=== PATIENT | male | born 1975 | race Caucasian/White ===

== ENCOUNTER 2017-06-04 14:22 | Observation (INO) | payer BC ==
[~2017-06-04] VITALS: Ht 177.8 cm; Wt 54.0 kg
[2017-06-04] MEDS ORDERED: SOD CHLORIDE 0.9% 1,000 ML IV STA (14:37)
--- NOTE | 2017-06-04 15:23 | RADRPT ---
PROCEDURE: CT brain without contrast CLINICAL INDICATION: Seizure TECHNIQUE: CT of the brain without contrast performed on a multidetector CT scanner. One or more o f the following dose reduction techniques were used: Automated exposure control, adjustment in mA an d / or kV according to patient size, use of iterative reconstructive technique. CTDIvol = 45 mGy; D LP = 720 mGy-cm. COMPARISON: None available FINDINGS: No acute intracranial hemorrhage is identified. No extra-axial fluid collection is seen. There is no mass effect. No midline shift is identified. The ventricles and sulci are mildly enlarged compatible with generalized volume loss. There are mild areas of hypodensity in the periventricular - deep white matter which are nonspecific but suggestive of chronic small vessel ischemic changes. Farfan-white differentiation is preserved. There is left parietal scalp swelling. The calvarium and skull base appear intact. Mastoid air cell s and imaged paranasal sinuses grossly clear. IMPRESSION: 1. No evidence of acute intracranial pathology. 2. Mild generalized volume loss, with mild chronic small vessel ischemic changes. 3. Left parietal scalp swelling. RPTAT: VV .Jose Angel Marrufo MD, MD Date Time Electronically viewed and signed by .Jose Angel Marrufo MD, on 06/04/2017 15:22 .O/
[2017-06-04 15:24] LABS: ABNORMAL IP MESSAGE 1; BASOPHIL # 0.1 10^3/ul (0.0-0.1); BASOPHILS % 0.7 % (0.0-2.0); EOSINOPHILS # 0.2 10^3/ul (0.0-0.5); HEMATOCRIT 40.5 % (42.0-52.0); HEMOGLOBIN 14.1 g/dl (14.0-18.0); LYMPHOCYTES # 1.6 10^3/ul (0.8-2.9); LYMPHOCYTES % 20.7 % (15.0-51.0); MEAN CORPUSCULAR HEMOGLOBIN 36.8 pg (29.0-33.0); MEAN CORPUSCULAR HGB CONC 34.8 g/dl (32.0-37.0); MEAN CORPUSCULAR VOLUME 105.7 fl (82.0-101.0); MEAN PLATELET VOLUME 11.8 fl (7.4-10.4); MONOCYTE # 0.9 10^3/ul (0.3-0.9); MONOCYTES % 11.8 % (0.0-11.0); NEUTROPHIL # 4.9 10^3/ul (1.6-7.5); NEUTROPHILS % 63.8 % (39.0-77.0); POSITIVE DIFF @See below; RED BLOOD COUNT 3.83 10^6/ul (4.70-6.10); RED CELL DISTRIBUTION WIDTH 13.2 % (11.5-14.5); WHITE BLOOD COUNT 7.6 10^3/ul (4.8-10.8)
--- NOTE | 2017-06-04 15:30 | RADRPT ---
PROCEDURE: XR Chest. CLINICAL INDICATION: Seizure TECHNIQUE: Single frontal view of the chest was obtained COMPARISON: None FINDINGS: No pleural effusion or pneumothorax. No consolidation. Normal cardiomediastinal silhouette. No acute osseous abnormality. IMPRESSION: No acute cardiopulmonary disease. RPTAT: EE Keri Bernstein Physician Date Time Electronically viewed and signed by Keri Bernstein Physician on 06/04/2017 15:30 /
[2017-06-04 15:46] LABS: ALANINE AMINOTRANSFERASE 145 IU/L (13-69); ALBUMIN 4.4 g/dl (3.3-4.9); ALBUMIN/GLOBULIN RATIO 1.41; ALKALINE PHOSPHATASE 173 IU/L (42-121); ANION GAP 24 (8-16); BILIRUBIN,INDIRECT 1.2 mg/dl (0-1.1); BILIRUBIN,TOTAL 1.2 mg/dl (0.2-1.3); BLOOD UREA NITROGEN 5 mg/dl (7-20); CALCIUM 9.4 mg/dl (8.4-10.2); CARBON DIOXIDE 19 mmol/L (21-31); CHLORIDE 91 mmol/L (97-110); CREATININE 0.73 mg/dl (0.61-1.24); GLUCOSE 191 mg/dl (70-220); PLATELET COUNT 38 10^3/UL (140-415); SODIUM 131 mmol/L (135-144); TOTAL PROTEIN 7.5 g/dl (6.1-8.1)
[2017-06-04 15:51] LABS: ETHANOL < 10.0 mg/dl
[2017-06-04 15:55] LABS: ASPARTATE AMINO TRANSFERASE 369 IU/L (15-46); TROPONIN-I < 0.012 ng/ml (0.00-0.12)
[2017-06-04] MEDS ORDERED: POTASSIUM CHLORIDE 250 ML IVPB ONE (16:30)
--- NOTE | 2017-06-04 17:04 | ERA ---
ER Documentation Chief Complaint Date/Time DATE: 06/04/17 TIME: 17:04 Chief Complaint POSSIBLE SEIZURE, NO HX SEIZURE. REDNESS/BRUISING NOTED ON LT ELBOW. HPI 41-year-old male previously healthy brought in by ambulance after a witnessed seizure. Patient was shopping at a grocery store across the street when he sat on the floor and started having seizure-like activity per bystanders. The patient does not remember anything. Reportedly he was post ictal but currently he is back to his normal self. Patient denies any symptoms other than just generalized weakness at this time. He denies any headache, vision disturbance, fevers, chills, chest pain, abdominal pain, difficulty breathing, focal weakness or numbness. He denies any recent alcohol or drug use. He has never had a seizure before. ROS All systems reviewed and are negative except as per history of present illness. Medications Home Meds No Active Prescriptions or Reported Meds Allergies Allergies: Coded Allergies: No Known Allergy (Unverified , 06/04/17) PMhx/Soc Medical and Surgical Hx: pt denies Medical Hx, pt denies Surgical Hx Hx Alcohol Use: Yes (Multiple days a week, 3-4 drinks) Hx Substance Use: Yes Hx Tobacco Use: Yes Smoking Status: Current every day smoker FmHx Family History: No coronary disease, No diabetes Physical Exam Vitals Vital Signs Date Time Temp Pulse Resp B/P Pulse Ox O2 Delivery O2 Flow Rate FiO2 06/04/17 14:37 98.3 111 18 113/87 99 Physical Exam Const: Appears malnourished, no apparent distress, nontoxic Head: Minimal left parietal scalp swelling. Skull depressions. Eyes: Normal Conjunctiva PERRLA, EOMI ENT: Dry mucous membranes, contusion to the left aspect of the tongue Neck: Full range of motion..~ No meningismus. No C-spine tenderness. Resp: Clear to auscultation bilaterally Cardio: Tachycardic with regular rhythm, no murmurs Abd: Soft, non tender, non distended. Normal bowel sounds Skin: No petechiae or rashes Back: No midline or flank tenderness Ext: No cyanosis, or edema Neur: Awake and alert and oriented 3, strength and sensations intact, cranial nerves intact, normal gait Psych: Normal Mood and Affect Result Diagram: 06/04/17 1450 06/04/17 1450 Results 24 hrs Laboratory Tests Test 06/04/17 14:50 06/04/17 16:20 06/04/17 16:45 White Blood Count 7.610^3/ul Red Blood Count 3.8310^6/ul Hemoglobin 14.1g/dl Hematocrit 40.5% Mean Corpuscular Volume 105.7fl Mean Corpuscular Hemoglobin 36.8pg Mean Corpuscular Hemoglobin Concent 34.8g/dl Red Cell Distribution Width 13.2% Platelet Count 3810^3/UL Mean Platelet Volume 11.8fl Neutrophils % 63.8% Lymphocytes % 20.7% Monocytes % 11.8% Eosinophils % 2.0% Basophils % 0.7% Nucleated Red Blood Cells % 0.0/100WBC Neutrophils # 4.910^3/ul Lymphocytes # 1.610^3/ul Monocytes # 0.910^3/ul Eosinophils # 0.210^3/ul Basophils # 0.110^3/ul Nucleated Red Blood Cells # 0.010^3/ul Pathologist Review (Hematology) Path Consult Signing Pathologist POLLY LÓPEZ MD Sodium Level 131mmol/L Potassium Level 3.0mmol/L Chloride Level 91mmol/L Carbon Dioxide Level 19mmol/L Anion Gap 24 Blood Urea Nitrogen 5mg/dl Creatinine 0.73mg/dl Glucose Level 191mg/dl Calcium Level 9.4mg/dl Total Bilirubin 1.2mg/dl Direct Bilirubin 0.00mg/dl Indirect Bilirubin 1.2mg/dl Aspartate Amino Transf (AST/SGOT) 369IU/L Alanine Aminotransferase (ALT/SGPT) 145IU/L Alkaline Phosphatase 173IU/L Troponin I < 0.012ng/ml Total Protein 7.5g/dl Albumin 4.4g/dl Globulin 3.10g/dl Albumin/Globulin Ratio 1.41 Ethyl Alcohol Level < 10.0mg/dl Urine Color YELLOW Urine Clarity SLIGHTLY CLOUDY Urine pH 8.0 Urine Specific [place] 1.006 Urine Ketones NEGATIVEmg/dL Urine Nitrite NEGATIVEmg/dL Urine Bilirubin NEGATIVEmg/dL Urine Urobilinogen NEGATIVEmg/dL Urine Leukocyte Esterase NEGATIVELeu/ul Urine Microscopic RBC 2/HPF Urine Microscopic WBC 4/HPF Urine Mucus FEW/HPF Urine Hemoglobin NEGATIVEmg/dL Urine Glucose NEGATIVEmg/dL Urine Total Protein 1+mg/dl Urine Opiates Screen Negative Urine Barbiturates Negative Urine Amphetamines Screen Negative Urine Benzodiazepines Screen Negative Urine Cocaine Screen Negative Urine Cannabinoids Negative Current Medications Medications (Trade) Dose Ordered Sig/Luis Alfredo Route PRN Reason Start Time Stop Time Status Last Admin Dose Admin Sodium Chloride 1,000 ml @ 1,000 mls/hr Q1H STAT IV 06/04/17 14:37 06/04/17 15:36 DC 06/04/17 14:46 Potassium Chloride (KCl 40 MEQ/250 ML NS) 250 ml @ 62.5 mls/hr ONCE ONCE IVPB 06/04/17 16:30 06/04/17 20:29 Ondansetron HCl (Zofran Inj) 4 mg ER BRIDGE PRN IV NAUSEA AND/OR VOMITING 06/04/17 17:30 06/05/17 17:29 Acetaminophen (Tylenol Tab) 650 mg ER BRIDGE PRN PO MILD PAIN/FEVER 06/04/17 17:30 06/05/17 17:29 Procedures/MDM EKG: Rate/Rhythm: Tachycardia at 106 bpm QRS, ST, T-waves: Nonspecific T-wave abnormality with minimal ST depression in V3 and V4 Impression: No evidence of ischemia or arrhythmia Imaging: Chest x-ray shows no significant abnormalities CT head shows scalp swelling, no other acute abnormalities Labs CBC: Number cytopenia CMP: Hyponatremia, hypokalemia, acidosis, hyperglycemia, lipid liver enzymes, elevated bilirubin Urine drug screen negative Troponin within normal limits UA: no evidence of infection, no ketones Medical decision making The patient is presenting with new onset seizure. He is neurologically intact. His vitals are notable for tachycardia and his exam was significant for signs of dehydration and malnourishment. CT head did not show any acute abnormalities other than some volume loss. Labs were significantly abnormal including thrombocytopenia and elevated liver enzymes, concerning for possible liver failure. He also had electrolyte abnormalities including hypokalemia and hyponatremia. IV fluids were started. Potassium supplementation was also started. I discussed with the patient my findings and he agrees that he has not been eating much lately and has been drinking alcohol, but not for the past few days. My suspicion for starvation acidosis is high, especially given his elevated anion gap. I have a lower suspicion for sepsis or alcohol withdrawal seizure, however this remains a possibility. The patient will require admission for further workup and management of his acute conditions. I will defer any further testing to the inpatient team Critical Care Time: 35 minutes Treatments/Evaluations: Close monitoring and treatment of unstable vital signs, cardiorespiratory, and neurologic status, while maintaining tight balance of fluid, respiratory, and cardiac interventions. This time includes discussing the case with the patient and the patients family. This time does not include all procedures stated elsewhere in this record. This time also includes reviewing old records, labs and radiological studies. This time includes examining and re-examining the patient. Additionally, this time also includes arranging care with admitting and consulting physicians. Accepting Care Team: Current data and ongoing care discussed. Time: Time of admission Primary Provider: Alyssa Consulting: none Outstanding Data: Acetone Departure Diagnosis: Primary Impression: New onset seizure Additional Impressions: Hypokalemia Hyponatremia Thrombocytopenia Elevated liver enzymes Increased anion gap metabolic acidosis Malnutrition Qualified Code: E46 - Malnutrition, unspecified type Condition: Serious TOMY NAYLOR MD Jun 04, 2017 17:04
[2017-06-04 17:15] LABS: ADD UMIC YES; UR ASCORBIC ACID 20 mg/dL (NEGATIVE); UR BILIRUBIN (Dip) NEGATIVE (NEGATIVE); UR BLOOD (Dip) NEGATIVE (NEGATIVE); UR CLARITY SLIGHTLY CLOUDY (CLEAR); UR COLOR YELLOW (YELLOW); UR GLUCOSE (Dip) NEGATIVE (NEGATIVE); UR KETONES (Dip) NEGATIVE (NEGATIVE); UR LEUKOCYTE ESTERASE (Dip) NEGATIVE Leu/ul (NEGATIVE); UR MUCUS FEW /HPF (NONE SEEN); UR NITRITE (Dip) NEGATIVE (NEGATIVE); UR RBC 2 /HPF (0-5); UR SPECIFIC GRAVITY (Dip) 1.006 (1.003-1.030); UR TOTAL PROTEIN (Dip) 1+ mg/dl (NEGATIVE); UR UROBILINOGEN (Dip) NEGATIVE (NEGATIVE)
[2017-06-04] MEDS ORDERED: ONDANSETRON 4 MG INJ IV PRN ×2 (17:30→18:00)
[2017-06-04] MEDS ORDERED: ACETAMINOPHEN 325 MG TAB PO PRN ×2 (17:30→18:00)
[2017-06-04 17:41] LABS: BARBITURATES Negative (NEGATIVE); BENZODIAZEPINES Negative (NEGATIVE); CANNABINOIDS Negative (NEGATIVE); COCAINE Negative (NEGATIVE); OPIATES Negative (NEGATIVE)
[2017-06-04] MEDS ORDERED: LORAZEPAM 2 MG INJ IV PRN (18:00)
[2017-06-04] MEDS: SOD CHLORIDE 0.9% 1,000 ML IV SCH (18:00)
[2017-06-04] MEDS ORDERED: DOCUSATE SODIUM 100 MG CAP PO PRN (18:00)
[2017-06-04] MEDS ORDERED: NACL 0.9% 3 ML SYG IV SCH (18:00)
[2017-06-04] MEDS ORDERED: POTASSIUM CHLORIDE (SR) 20 MEQ TAB PO STA (18:14)
--- NOTE | 2017-06-04 18:16 | HP ---
Date/Time of Note Date/Time of Note DATE: 06/04/17 TIME: 18:15 Assessment/Plan VTE Prophylaxis VTE Prophylaxis Intervention: LMWH Assessment/Plan Assessment/Plan 1. New onset seizure - questionable if secondary to alcohol withdrawal - Will order EEG - Seizure precautions - Neurology consult - Ativan PRN - CT head negative for any acute abnormalities 2. Alcohol abuse - Patient states he drinks about 3-6 shots almost daily - Last drink was yesterday, 3 shots. ETOH level <10 - Denies going through withdrawal symptoms in the past - will start on banana bag with IVF - Librium 25mg TID and will wean - Counseled about ETOH cessation 3. Elevated LFTs - most likely alcoholic hepatitis give AST>ALT - Will order US RUQ to assess. finding of hepatomegaly - will monitor LFTs 4. Abdominal pain most likely secondary to alcoholic hepatitis - continue monitoring - Zofran for nausea 5. Tobacco abuse - smokes 1ppd - counseled about cessation - Not interested in patch at this time 6. Hypokalemia - replaced - will monitor 7. Hyponatremia - Most likely seizure related as well as dehydration - Will monitor and order urine studies 8. Diet - Regular 9. Code status - Full code 10. DVT - LMWH 11. GI - Pepcid 11. Disposition - Patient admitted to telemetry for further workup >40 minutes was spent at time of admission with patient. All labs and imaging reviewed personally and all patients questions answered. HPI/ROS Admit Date/Time Admit Date/Time Hx of Present Illness 41 yo M with PMH alcohol and tobacco abuse presented to ED after experiencing a witness seizure. Per patient he remembers walking to the convenience store and then blacked out. He awoke to EMS and was told he was seen to have seizure like activity by two gentleman outside the store. He denies biting his tongue/ lip or any loss of bladder or bowel. Patient states he has never experienced seizures before. Over the past year he admits to weight loss of 15lbs and loss of appetite for the past 2 months. He also has been experiencing right upper quadrant discomfort that is pressure like, nonradiating, not associated with food, as well as nausea and diarrhea. He does admit to a cough as well and numbness of his toes occasionally. Patient states he has been drink 3-6 shots almost daily for the past 20 years. Last drink was yesterday and he had 3 shots but denies any alcohol intake today. States he usually drinks for a couple days then abstains for 2-3 days. States he does experience tremors when he abstains but usually goes away in 1-2 days without any other withdrawal symp ROS Constitutional: fatigue, poor po, weight change, No diaphoresis, No nausea Eyes: no complaints ENT: no complaints Respiratory: cough, No shortness of breath, No sputum, No wheezing Cardiovascular: No chest pain, No edema, No lightheadedness, No palpitations Gastrointestinal: diarrhea, nausea, pain, No constipation, No vomiting Genitourinary: no complaints Musculoskeletal: other (weakness) Skin: laceration Neurologic: seizure Endocrine: no complaints Psychological: nl mood/affect, no complaints Immunologic: no complaints PMH/Family/Social Past Medical History Medical History: no pertinent history Past Surgical History Past Surgical Hx: other (wisdom teeth) Family History Significant Family History: diabetes, hypertension, other (mother- brain tumor) Social History Alcohol Use: occasionally Smoking Status: Current every day smoker Drug Use: none Exam/Review of Systems Vital Signs Vitals Vital Signs Date Time Temp Pulse Resp B/P Pulse Ox O2 Delivery O2 Flow Rate FiO2 06/04/17 14:37 98.3 111 18 113/87 99 Exam Constitutional: alert, frail, oriented, well developed Psych: nl mood/affect Head: atraumatic, hematomas, normocephalic Eyes: EOMI, PERRL ENMT: other (healing wound right ear lobe) Neck: non-tender, supple Respiratory: clear to auscultation, No crackles/rales, No diminished breath sounds, No wheezing Cardiovascular: regular rate and rhythm, No edema, No systolic murmur Gastrointestinal: bowel sounds, hepatomegaly, non-tender, soft, No rebound or guarding Musculoskeletal: nl extremities to inspection Extremities: normal pulses 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
[2017-06-04 18:30] VITALS: TEMP 98.3
[2017-06-04] MEDS ORDERED: ALBUTEROL 0.083% (NEB) 2.5 MG/3 ML AMP HHN PRN (18:30)
--- NOTE | 2017-06-04 18:46 | RADRPT ---
PROCEDURE: US Abdomen. CLINICAL INDICATION: abdominal pain TECHNIQUE: Multiple real-time images were acquired of the patient's right upper quadrant abdomen a nd retroperitoneum utilizing a high resolution transducer. COMPARISON: None FINDINGS: The liver demonstrates heterogeneous and increased echogenicity. The liver is slightly increased in size and no focal solid lesions are seen. The liver measures 19.3 cm in length. The portal vein is patent with normal direction of flow. No intrahepatic biliary dilatation is seen. The gallbladder is contracted. There is a small amount of sludge within the gallbladder. No gallston es are identified within the gallbladder. There is no pericholecystic fluid or gallbladder wall thi ckening. The common bile duct measures 3.5 mm in maximal dimension. The visualized portions of the pancreas are unremarkable. The tail of the pancreas is not seen. No free fluid is identified. The right kidney is normal in size, and demonstrate normal echogenicity and cortical thickness. The right kidney measures 10.9 cm in long dimension. There is no evidence of hydronephrosis. There is a 5 mm cortical calcification versus nonobstructing stone in the right kidney. RPTAT: AA IMPRESSION: Mild hepatomegaly with fatty infiltration of the liver. Contracted gallbladder with no evidence of gallstones. Small amount of sludge within the gallbladder . Small cortical calcification versus nonobstructing stone in the right kidney. No evidence of hydrone phrosis. .Dave Davis MD, MD Date Time Electronically viewed and signed by .Dave Davis MD, MD on 06/04/2017 18:46 .S/
[2017-06-04 20:00] VITALS: BP 112/71; PULSE 97; RESP 19; Ht 177.8 cm; Wt 54.0 kg
[2017-06-04 20:23] VITALS: BP 106/56; RESP 18
[2017-06-04] MEDS: CHLORDIAZEPOXIDE 25 MG CAP PO SCH (21:17)
[2017-06-04] MEDS: FAMOTIDINE 20 MG TAB PO SCH (21:17)
[2017-06-05] VITALS (11 sets, daily range): BP systolic 102–124; BP diastolic 60–80; PULSE 67–136; RESP 15–19
[2017-06-05] MEDS: SOD CHLORIDE 0.9% 1,000 ML IV SCH ×2 (04:00→18:00)
[2017-06-05 07:17] LABS: ABNORMAL IP MESSAGE 1; BASOPHILS % 0.7 % (0.0-2.0); EOSINOPHILS # 0.1 10^3/ul (0.0-0.5); EOSINOPHILS % 2.2 % (0.0-7.0); HEMATOCRIT 34.9 % (42.0-52.0); HEMOGLOBIN 11.6 g/dl (14.0-18.0); LYMPHOCYTES % 21.8 % (15.0-51.0); MEAN CORPUSCULAR HEMOGLOBIN 35.3 pg (29.0-33.0); MEAN CORPUSCULAR HGB CONC 33.2 g/dl (32.0-37.0); MEAN CORPUSCULAR VOLUME 106.1 fl (82.0-101.0); MEAN PLATELET VOLUME 11.9 fl (7.4-10.4); MONOCYTE # 0.7 10^3/ul (0.3-0.9); MONOCYTES % 15.5 % (0.0-11.0); NEUTROPHIL # 2.7 10^3/ul (1.6-7.5); NEUTROPHILS % 59.4 % (39.0-77.0); PLATELET COUNT 31 10^3/UL (140-415); POSITIVE DIFF @See below; RED BLOOD COUNT 3.29 10^6/ul (4.70-6.10); RED CELL DISTRIBUTION WIDTH 13.4 % (11.5-14.5); WHITE BLOOD COUNT 4.6 10^3/ul (4.8-10.8)
[2017-06-05 07:55] LABS: ALBUMIN 3.1 g/dl (3.3-4.9); ALBUMIN/GLOBULIN RATIO 1.1; CALCIUM 8.9 mg/dl (8.4-10.2); CREATININE 0.51 mg/dl (0.61-1.24); MAGNESIUM 1.5 mg/dl (1.7-2.5); POTASSIUM 4.7 mmol/L (3.5-5.1); TOTAL PROTEIN 5.9 g/dl (6.1-8.1)
[2017-06-05 08:18] LABS: THYROID STIMULATING HORMONE 1.68 MIU/L (0.465-4.680)
[2017-06-05] MEDS: CHLORDIAZEPOXIDE 25 MG CAP PO SCH ×3 (08:49→21:02)
[2017-06-05] MEDS: FAMOTIDINE 20 MG TAB PO SCH ×2 (08:49→21:02)
[2017-06-05] MEDS ORDERED: MULTIVITAMINS 10 ML, THIAMINE 100 MG, FOLIC ACID 1 MG in SOD CHLORIDE 0.9% 1,000 ML IVPB SCH (09:00)
[2017-06-05] MEDS ORDERED: MAGNESIUM SULFATE 2 GM/50 ML 50 ML IVPB ONE (10:00)
--- NOTE | 2017-06-05 14:56 | CONS ---
Date/Time of Note Date/Time of Note DATE: 06/05/17 TIME: 14:51 Assessment/Plan Assessment/Plan Chief Complaint/Hosp Course New onset seizure activity Problems: Additional Assessment/Plan 41-year-old male with history of alcohol and nicotine use admitted following a new onset of witnessed seizure. Bystanders called paramedics and was brought into emergency room. A CT scan of the brain was unremarkable. He had no other episode of seizure activity while inpatient. He does have a history of drinking alcohol for the last 20 years. Neurological examination is nonfocal. Apparently he has new onset seizures. Plan 1 MRI of the brain 2 EEG 3 seizure precautions 4 start on Keppra 500 mg p.o. twice daily 5 we will follow Consultation Date/Type/Reason Admit Date/Time June 04, 2017 Date of Consultation: Jun 05, 2017 Type of Consultation: Neurology Reason for Consultation New onset seizure activity Referring Provider: DEREK CASTILLO MD Hx of Present Illness 41-year-old male with history of alcohol and nicotine use admitted following a new onset of witnessed seizure. Bystanders called paramedics and was brought into emergency room. A CT scan of the brain was unremarkable. He had no other episode of seizure activity while inpatient. He does have a history of drinking alcohol for the last 20 years. Constitutional: no complaints Eyes: no complaints ENT: no complaints Respiratory: cough, no complaints, No shortness of breath, No sputum, No wheezing Cardiovascular: no complaints, No chest pain, No edema, No lightheadedness, No palpitations Gastrointestinal: diarrhea, nausea, no complaints, pain, No constipation, No vomiting Genitourinary: no complaints Musculoskeletal: no complaints, other (weakness) Skin: laceration, no complaints Neurologic: no complaints, seizure Endocrine: no complaints Lymphatic: no complaints Psychological: nl mood/affect Immunologic: no complaints Past Medical History Medical History: no pertinent history Past Surgical History Past Surgical Hx: other (wisdom teeth) Social History Alcohol Use: occasionally Smoking Status: Current every day smoker Drug Use: none Exam/Review of Systems Vital Signs Vitals Vital Signs Date Time Temp Pulse Resp B/P Pulse Ox O2 Delivery O2 Flow Rate FiO2 06/05/17 12:01 67 06/05/17 11:46 98.1 19 123/80 99 06/04/17 20:00 Room Air Intake and Output 06/04/17 06/04/17 06/05/17 15:00 23:00 07:00 Intake Total 700 ml Output Total 800 ml Balance -100 ml Exam Constitutional: alert, oriented, well developed Psych: nl mood/affect, no complaints Head: atraumatic, normocephalic Eyes: EOMI, nl conjunctiva, nl lids, nl sclera ENMT: mucosa pink and moist, nl external ears & nose, nl lips & teeth, nl nasal mucosa & septum Neck: non-tender, supple Respiratory: clear to auscultation, normal air movement Cardiovascular: regular rate and rhythm Gastrointestinal: nl liver, spleen, non-tender, soft Musculoskeletal: nl extremities to inspection, nl gait and stance Extremities: normal pulses 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, nl mental status, nl speech, nl strength Skin: nl turgor, rash or lesions Results Result Diagram: 06/05/1761106/05/17 06 Results 24 hrs Laboratory Tests Test 06/04/17 16:20 06/04/17 16:45 06/05/17 06:12 Urine Color YELLOW Urine Clarity SLIGHTLY CLOUDY A Urine pH 8.0 Urine Specific [place] 1.006 Urine Ketones NEGATIVE Urine Nitrite NEGATIVE Urine Bilirubin NEGATIVE Urine Urobilinogen NEGATIVE Urine Leukocyte Esterase NEGATIVE Urine Microscopic RBC 2 Urine Microscopic WBC 4 Urine Mucus FEW A Urine Hemoglobin NEGATIVE Urine Glucose NEGATIVE Urine Total Protein 1+ H Urine Opiates Screen Negative Urine Barbiturates Negative Urine Amphetamines Screen Negative Urine Benzodiazepines Screen Negative Urine Cocaine Screen Negative Urine Cannabinoids Negative White Blood Count 4.6 #L Red Blood Count 3.29 L Hemoglobin 11.6 L Hematocrit 34.9 L Mean Corpuscular Volume 106.1 H Mean Corpuscular Hemoglobin 35.3 H Mean Corpuscular Hemoglobin Concent 33.2 Red Cell Distribution Width 13.4 Platelet Count 31 L Mean Platelet Volume 11.9 H Neutrophils % 59.4 Lymphocytes % 21.8 Monocytes % 15.5 H Eosinophils % 2.2 Basophils % 0.7 Nucleated Red Blood Cells % 0.0 Neutrophils # 2.7 Lymphocytes # 1.0 Monocytes # 0.7 Eosinophils # 0.1 Basophils # 0.0 Nucleated Red Blood Cells # 0.0 Sodium Level 135 Potassium Level 4.7 Chloride Level 103 # Carbon Dioxide Level 27 Anion Gap 10 # Blood Urea Nitrogen 4 L Creatinine 0.51 L Glucose Level 89 # Hemoglobin A1c 5.0 Calcium Level 8.9 Magnesium Level 1.5 L Total Bilirubin 1.0 Direct Bilirubin 0.00 Indirect Bilirubin 1.0 Aspartate Amino Transf (AST/SGOT) 248 H Alanine Aminotransferase (ALT/SGPT) 124 H Alkaline Phosphatase 125 H Total Protein 5.9 #L Albumin 3.1 #L Globulin 2.80 Albumin/Globulin Ratio 1.10 Thyroid Stimulating Hormone (TSH) 1.680 Medications Medications Current Medications Ondansetron HCl (Zofran Inj) 4 mg Q6H PRN IV NAUSEA AND/OR VOMITING; Start at 18:00 Acetaminophen (Tylenol Tab) 650 mg Q6H PRN PO PAIN LEVEL 1-3 OR FEVER; Start at 18:00 Docusate Sodium (Colace) 100 mg Q12H PRN PO CONSTIPATION; Start 06/04/17 at 18: 00 Famotidine 20 mg 20 mg Q12 PO Last administered on 06/05/17 08:49; Admin Dose 20 MG; Start 06/04/17 at 21:00 Multivitamins 10 ml/Thiamine HCl 100 mg/Folic Acid 1 mg/Sodium Chloride 1,011.2 ml @ 125 mls/ hr DAILY@09 IVPB Last administered on 06/05/17 08:49; Admin Dose 125 MLS/HR; Start 06/05/17 at 09:00 Sodium Chloride (NS) 1,000 ml @ 100 mls/hr Q10H IV Last administered on 04:00; Admin Dose 100 MLS/HR; Start 06/04/17 at 18:00 Chlordiazepoxide (Librium) 25 mg TID PO Last administered on 06/05/17 13:44; Admin Dose 25 MG; Start 06/04/17 at 21:00 Lorazepam (Ativan) 1 mg [id number] PRN IV SEIZURES; Start 06/04/17 at 18:00 Albuterol (Proventil 0.083% (Neb)) 2.5 mg Q4 PRN HHN SHORTNESS OF BREATH; Start 06/04/17 at 18:30 MONICA LEONG MD Jun 05, 2017 14:56
--- NOTE | 2017-06-05 15:30 | PN ---
Date/Time of Note Date/Time of Note DATE: 06/05/17 TIME: 15:25 Assessment/Plan VTE Prophylaxis VTE Prophylaxis Intervention: LMWH Lines/Catheters IV C[facility]ter Type (from [facility] Peripheral IV Urinary Cath still in place: No Assessment/Plan Assessment/Plan 1. New onset seizure - Neurology on board and recommendations appreciated. MRI brain ordered and EEG. Started on Keppra BID - Seizure precautions - Ativan PRN - CT head negative for any acute abnormalities 2. Alcohol abuse - Patient states he drinks about 3-6 shots almost daily - Last drink was yesterday, 3 shots. ETOH level <10 - discussed importance of abstaining from alcohol and patient states he is planning to quit - Denies going through withdrawal symptoms in the past - Librium TID and will decrease to BID tmrw - Banana bag and IVF 3. Elevated LFTs - most likely alcoholic hepatitis give AST>ALT - US RUQ shows mild hepatomegaly and fatty infiltrate - will monitor LFTs which appear to be trending down 4. Abdominal pain most likely secondary to alcoholic hepatitis- improving - continue monitoring - Zofran for nausea 5. Tobacco abuse - smokes 1ppd - counseled about cessation - Not interested in patch at this time 6. Hypokalemia- resolved - will monitor 7. Hyponatremia- resolved - Most likely seizure related as well as dehydration - Will monitor Subjective 24 Hr Interval Summary Free Text/Dictation patient states he is feeling better since admission and no further episodes of seizures. He has a good appetite but still experiencing generalized weakness. Walked with PT today with no issues. Exam/Review of Systems Vital Signs Vitals Vital Signs Date Time Temp Pulse Resp B/P Pulse Ox O2 Delivery O2 Flow Rate FiO2 06/05/17 12:01 67 06/05/17 11:46 98.1 19 123/80 99 06/04/17 20:00 Room Air Intake and Output 06/04/17 06/04/17 06/05/17 15:00 23:00 07:00 Intake Total 700 ml Output Total 800 ml Balance -100 ml Exam Constitutional: alert, oriented, well developed Neck: non-tender, supple Respiratory: clear to auscultation, no crackles/rales, No diminished breath sounds, No wheezing Cardiovascular: regular rate and rhythm, No edema, No systolic murmur Gastrointestinal: bowel sounds, hepatomegaly, non-tender, soft, No rebound or guarding Musculoskeletal: nl extremities to inspection Extremities: normal pulses Neurological: [employer] II-XII intact, nl mental status, nl speech, nl strength Skin: laceration Results Result Diagram: 06/05/17 0612 06/05/17 0612 Results 24 hrs Laboratory Tests Test 06/04/17 16:20 06/04/17 16:45 06/05/17 06:12 Urine Color YELLOW Urine Clarity SLIGHTLY CLOUDY A Urine pH 8.0 Urine Specific [place] 1.006 Urine Ketones NEGATIVE Urine Nitrite NEGATIVE Urine Bilirubin NEGATIVE Urine Urobilinogen NEGATIVE Urine Leukocyte Esterase NEGATIVE Urine Microscopic RBC 2 Urine Microscopic WBC 4 Urine Mucus FEW A Urine Hemoglobin NEGATIVE Urine Glucose NEGATIVE Urine Total Protein 1+ H Urine Opiates Screen Negative Urine Barbiturates Negative Urine Amphetamines Screen Negative Urine Benzodiazepines Screen Negative Urine Cocaine Screen Negative Urine Cannabinoids Negative White Blood Count 4.6 #L Red Blood Count 3.29 L Hemoglobin 11.6 L Hematocrit 34.9 L Mean Corpuscular Volume 106.1 H Mean Corpuscular Hemoglobin 35.3 H Mean Corpuscular Hemoglobin Concent 33.2 Red Cell Distribution Width 13.4 Platelet Count 31 L Mean Platelet Volume 11.9 H Neutrophils % 59.4 Lymphocytes % 21.8 Monocytes % 15.5 H Eosinophils % 2.2 Basophils % 0.7 Nucleated Red Blood Cells % 0.0 Neutrophils # 2.7 Lymphocytes # 1.0 Monocytes # 0.7 Eosinophils # 0.1 Basophils # 0.0 Nucleated Red Blood Cells # 0.0 Sodium Level 135 Potassium Level 4.7 Chloride Level 103 # Carbon Dioxide Level 27 Anion Gap 10 # Blood Urea Nitrogen 4 L Creatinine 0.51 L Glucose Level 89 # Hemoglobin A1c 5.0 Calcium Level 8.9 Magnesium Level 1.5 L Total Bilirubin 1.0 Direct Bilirubin 0.00 Indirect Bilirubin 1.0 Aspartate Amino Transf (AST/SGOT) 248 H Alanine Aminotransferase (ALT/SGPT) 124 H Alkaline Phosphatase 125 H Total Protein 5.9 #L Albumin 3.1 #L Globulin 2.80 Albumin/Globulin Ratio 1.10 Thyroid Stimulating Hormone (TSH) 1.680 Medications Medications Current Medications Ondansetron HCl (Zofran Inj) 4 mg Q6H PRN IV NAUSEA AND/OR VOMITING; Start at 18:00 Acetaminophen (Tylenol Tab) 650 mg Q6H PRN PO PAIN LEVEL 1-3 OR FEVER; Start at 18:00 Docusate Sodium (Colace) 100 mg Q12H PRN PO CONSTIPATION; Start 06/04/17 at 18: 00 Famotidine 20 mg 20 mg Q12 PO Last administered on 06/05/17 08:49; Admin Dose 20 MG; Start 06/04/17 at 21:00 Multivitamins 10 ml/Thiamine HCl 100 mg/Folic Acid 1 mg/Sodium Chloride 1,011.2 ml @ 125 mls/ hr DAILY@09 IVPB Last administered on 06/05/17 08:49; Admin Dose 125 MLS/HR; Start 06/05/17 at 09:00 Sodium Chloride (NS) 1,000 ml @ 100 mls/hr Q10H IV Last administered on 04:00; Admin Dose 100 MLS/HR; Start 06/04/17 at 18:00 Chlordiazepoxide (Librium) 25 mg TID PO Last administered on 06/05/17 13:44; Admin Dose 25 MG; Start 06/04/17 at 21:00 Lorazepam (Ativan) 1 mg [id number] PRN IV SEIZURES; Start 06/04/17 at 18:00 Albuterol (Proventil 0.083% (Neb)) 2.5 mg Q4 PRN HHN SHORTNESS OF BREATH; Start 06/04/17 at 18:30 DEREK CASTILLO MD Jun 05, 2017 15:30
--- NOTE | 2017-06-06 14:24 | PRO ---
DATE OF PROCEDURE: 06/05/2017 PROCEDURE PERFORMED: EEG. HISTORY: This is a 41-year-old male with new onset seizures. CURRENT MEDICATIONS: Librium. DESCRIPTION OF PROCEDURE: Utilizing a 16 channel EEG machine, cap scalp electrodes were applied in accordance with the International 10/20 system. Scalp to scalp and scalp to ear montages were displayed. Electrical impedances were measured and reported. During resting state posterior dominant rhythm of about 9-10 Hz were seen bihemispherically. Blink artifact was noted at times. The left frontal central sharp were noted at times during the tracing. INTERPRETATION: This is an abnormal EEG because of presence of epileptiform activity in the left frontal central area. Please correlate clinically. Dictated By: Monisha Yousif MD /[email or web address] /Document#: [id number]
--- NOTE | 2017-06-06 22:49 | DS ---
Date/Time of Note Date/Time of Note DATE: 06/06/17 TIME: 22:49 Discharge Summary Admission/Discharge Info Admit Date/Time Jun 04, 2017 at 17:04 Discharge Date/Time Jun 05, 2017 at 22:41 Discharge Diagnosis 1. New onset seizures 2. Dehydration 3. Alcohol abuse 4. Alcoholic hepatitis 5. Tobacco abuse 6. Electrolyte imbalance Patient Condition: Fair Consults Neurology, Dr. Yousif Hx of Present Illness 41 yo M with PMH alcohol and tobacco abuse presented to ED after experiencing a witness seizure. Per patient he remembers walking to the convenience store and then blacked out. He awoke to EMS and was told he was seen to have seizure like activity by two gentleman outside the store. He denies biting his tongue/ lip or any loss of bladder or bowel. Patient states he has never experienced seizures before. Over the past year he admits to weight loss of 15lbs and loss of appetite for the past 2 months. He also has been experiencing right upper quadrant discomfort that is pressure like, nonradiating, not associated with food, as well as nausea and diarrhea. He does admit to a cough as well and numbness of his toes occasionally. Patient states he has been drink 3-6 shots almost daily for the past 20 years. Last drink was yesterday and he had 3 shots but denies any alcohol intake today. States he usually drinks for a couple days then abstains for 2-3 days. States he does experience tremors when he abstains but usually goes away in 1-2 days without any other withdrawal symp Hospital Course Patient was admitted and workup was performed to evaluate new onset seizures. Neurology was consulted and patient was started on Keppra. EEG was ordered and ativan PRN for seizures. CT head was performed and was negative for any acute abnormalities. Due to patients alcohol history, he was started on Librium, IV NSS and banana bag. He was counseled about importance of alcohol cessation. LTF were elevated and US gallbladder showed mild hepatomegaly and fatty liver changes. Patient was feeling better but eloped and never found. Patient was reported to charge nurse as well as police. Home Meds No Active Prescriptions or Reported Meds Follow-up Plan Patient eloped before follow up plan could be established. Primary Care Provider Care Physician No Primary Time spent on discharge: < 30 minutes DEREK CASTILLO MD Jun 06, 2017 22:49
== END 2017-06-05 22:41 | disposition left against medical advice (07) ==
LOC: E/R 14:22 → MS4 17:04
PROVIDERS: ADMIT Internal Medicine; ATTEND Internal Medicine
DX: R56.9 Unspecified convulsions (principal); E86.0 Dehydration; F10.10 Alcohol abuse, uncomplicated; K70.10 Alcoholic hepatitis without ascites; Z72.0 Tobacco use; E87.6 Hypokalemia; E87.1 Hypo-osmolality and hyponatremia
CPT/HCPCS: 70450; 71010; 76705; 80053; 80306; 80307; 81001; 82010; 83036; 83735; 84443; 84484; 85025; 95819; 97161; G0378; J3411; J3475; J3480; J7030